=== PATIENT | male | born 1950 | race Caucasian/White ===

== ENCOUNTER → 2016-08-20 | Outpatient (CLI) | payer OTHER ==
[~2016-08-20] VITALS: Ht 175.3 cm; Wt 83.9 kg
[~2016-08-20] MED LIST: ALTACE10 MG PO; ALTACE5 MG PO; AMLODIPINE PO; ANTI HYPERTENSIVE PO; ATROVENT H200 INHALA IH; FERROUS SULFAT325 MG PO; FLOMAX0.4 MG PO; FLOVENT 11120 INHALA IH; FOLIC ACID PO; HYDROCODON-ACE1 EAC7 PO; HYDROCODON-ACE1 EAC9 PO; IRON PO; LIPITOR10 MG PO; LISINOPRIL40 MG PO; LORTAB 10-3251 EACH PO; LYRICA300 MG PO; NORVASC10 MG PO; NORVASC5 MG PO; PRILOSEC20 MG PO; PRILOSEC40 MG PO; PROVENTIL HFA6.7 GM IH; RANITIDINE HCL150 MG PO; THIAMINE HCL100 MG PO; ULTRAM50 MG PO; VENTOLIN HFA18 GM IH; VICODIN 5-3001 EACH PO; VITAMIN B IM; ZANAFLEX4 M1 PO; ZANTAC150 MG PO; ZOCOR10 MG PO; ZYRTEC10 M3 PO
== END | disposition home or self-care (01) ==
LOC: AMB 08-16 12:00
DX: K29.70 Gastritis, unspecified, without bleeding (principal); K20.9 Esophagitis, unspecified; K29.80 Duodenitis without bleeding; D12.0 Benign neoplasm of cecum; D12.3 Benign neoplasm of transverse colon; K57.90 Diverticulosis of intestine, part unspecified, without perforation or abscess without bleeding; K21.9 Gastro-esophageal reflux disease without esophagitis; E53.8 Deficiency of other specified B group vitamins; K59.00 Constipation, unspecified; D50.9 Iron deficiency anemia, unspecified; F17.200 Nicotine dependence, unspecified, uncomplicated; I10 Essential (primary) hypertension; Z82.49 Family history of ischemic heart disease and other diseases of the circulatory system
CPT/HCPCS: 88305; 88342 TC; 93005

== ENCOUNTER 2017-03-29 09:33 | Inpatient (IN) | payer OTHER ==
[~2017-03-29] VITALS: Ht 167.6 cm; Wt 92.5 kg
[~2017-03-29 09:33] MED LIST changes: +PRILOSEC OTC20 MG PO
[2017-03-29 10:21] VITALS: BP 90/56
[2017-03-29 11:05] LABS: ANION GAP 12 MEQ/L (2-14); CHLORIDE 105 MEQ/L (99-109); POTASSIUM 4.7 MEQ/L (3.7-5.4); SAMPLE HEMOLYSIS CHECK 0; SAMPLE ICTERIC CHECK 0; SAMPLE LIPEMIA CHECK 0; SODIUM 139 MEQ/L (136-147); TOTAL BILIRUBIN 0.4 MG/DL (0.0-1.0)
[2017-03-29 11:13] LABS: ALKALINE PHOSPHATASE 76 IU/L (3-129); GFR ESTIMATE (CALCULATED) 14 mL/min/; GLUCOSE 107 mg/dL (70-99); UREA NITROGEN (BUN) 107 mg/dL (9-23)
[2017-03-29 12:11] LABS: POINT-OF-CARE METER ID UU13113747; POINT-OF-CARE USER ID NUTJNM
[2017-03-29 12:38] LABS: EOSINOPHIL (%) 2.2 % (0-5); EOSINOPHIL COUNT 0.1 K/uL (0-0.3); HEMATOCRIT 30.6 % (38.0-50.0); IMMATURE GRANULOCYTE (%) 0.6 % (0.0-0.7); INSTRUMENT ABS NEUTROPHIL CT 3.5 K/uL; LYMPHOCYTE COUNT 1.1 K/uL (1.0-2.8); MCH 31.7 PG (29.0-34.0); MCHC 32.7 G/DL (30.0-36.0); MCV 97.1 FL (86-99); MEAN PLAT.VOLUME 12.1 uM^3 (9.0-12.4); MONOCYTE (%) 11.6 % (3-12); MONOCYTE COUNT 0.6 K/uL (0-0.8); NEUTROPHIL (%) 64.6 % (45-76); NEUTROPHIL COUNT 3.5 K/uL (1.8-6.4); PLATELET COUNT 245 K/uL (156-360); RBC DIS.WIDTH-CV 13.6 % (11.8-14.6); RBC DIS.WIDTH-SD 48.5 % (39-53); RED BLOOD COUNT 3.15 M/uL (4.00-5.50); WHITE BLOOD COUNT 5.4 K/uL (4.1-10.2)
[2017-03-29 12:43] LABS: INTER. NORMALIZED RATIO 1.1; PROTHROMBIN TIME 12.2 SEC (10.2-12.9)
[2017-03-29 12:46] LABS: CHLORIDE 105 mEq/L (99-109); POTASSIUM 4.6 mEq/L (3.7-5.4); PTT 25.2 SEC (25-37); SODIUM 138 mEq/L (136-147)
[2017-03-29 12:49] LABS: GLUCOSE 100 mg/dL (70-99)
[2017-03-29 12:50] LABS: ANION GAP 12 MEQ/L (2-14)
[2017-03-29 12:51] LABS: TOTAL BILIRUBIN 0.3 mg/dL (0.0-1.0)
[2017-03-29 12:52] LABS: ALKALINE PHOSPHATASE 72 IU/L (3-129)
[2017-03-29 12:53] LABS: GFR ESTIMATE (CALCULATED) 14 mL/min/
[2017-03-29 12:54] LABS: DIRECT BILIRUBIN 0.2 mg/dL (0.0-0.3)
[2017-03-29 12:55] LABS: UREA NITROGEN (BUN) 111 mg/dL (9-23)
[2017-03-29 12:56] LABS: LIPASE 79 U/L (1.0-51.0)
[2017-03-29 12:59] LABS: TROP-I INTERPRETATION NEGATIVE; TROPONIN-I < 0.01 ng/mL (0.0-0.30)
[2017-03-29] MEDS ORDERED: MONTELUKAST SOD10 MG PO (14:37)
[2017-03-29] MEDS ORDERED: TRAMADOL HCL50 MG PO (14:37)
[2017-03-29 15:47] LABS: CREATINE KINASE 239 IU/L (1-294)
[2017-03-29 15:50] LABS: ADD MIUA? NO; BILIRUBIN NEGATIVE; BLOOD NEGATIVE; COLOR YELLOW ((YELLOW)); GLUCOSE (STRIP) NEGATIVE; KETONES NEGATIVE; LEUKOCYTES NEGATIVE; NITRITE NEGATIVE; PROTEIN (STRIP) NEGATIVE; SPECIFIC GRAVITY 1.019 (1.000-1.030); UCUL ADDED? NO; UROBILINOGEN 0.2 MG/DL (0.2-1.0)
[2017-03-29 17:07] LABS: UR CREATININE CONCENTRATION 197.2 MG/DL; UR CREATININE CONCENTRATION 199.5 MG/DL
[2017-03-29 19:15] VITALS: BP 94/56
[2017-03-29 23:00] VITALS: BP 87/54
[2017-03-30 03:00] VITALS: BP 128/72
[2017-03-30 07:45] VITALS: BP 116/70
[2017-03-30 09:41] LABS: EOSINOPHIL COUNT 0.2 K/uL (0-0.3); HEMATOCRIT 29.8 % (38.0-50.0); IMMATURE GRANULOCYTE (%) 0.6 % (0.0-0.7); INSTRUMENT ABS NEUTROPHIL CT 2.8 K/uL; LYMPHOCYTE COUNT 1.2 K/uL (1.0-2.8); MCH 33.1 PG (29.0-34.0); MCHC 32.9 G/DL (30.0-36.0); MCV 100.7 FL (86-99); MEAN PLAT.VOLUME 12.2 uM^3 (9.0-12.4); MONOCYTE (%) 10.2 % (3-12); MONOCYTE COUNT 0.5 K/uL (0-0.8); NEUTROPHIL (%) 59.3 % (45-76); NEUTROPHIL COUNT 2.8 K/uL (1.8-6.4); PLATELET COUNT 213 K/uL (156-360); RBC DIS.WIDTH-CV 13.7 % (11.8-14.6); RBC DIS.WIDTH-SD 50.7 % (39-53); RED BLOOD COUNT 2.96 M/uL (4.00-5.50); WHITE BLOOD COUNT 4.7 K/uL (4.1-10.2)
[2017-03-30 09:50] LABS: ANION GAP 8 MEQ/L (2-14); CHLORIDE 115 MEQ/L (99-109); GFR ESTIMATE (CALCULATED) 34 mL/min/; GLUCOSE 98 mg/dL (70-99); POTASSIUM 4.6 MEQ/L (3.7-5.4); SAMPLE HEMOLYSIS CHECK 0; SAMPLE ICTERIC CHECK 0; SAMPLE LIPEMIA CHECK 0; SODIUM 143 MEQ/L (136-147); UREA NITROGEN (BUN) 72 mg/dL (9-23)
[2017-03-30 12:00] VITALS: BP 114/83
[2017-03-30 16:00] VITALS: BP 140/76
[2017-03-30 19:00] VITALS: BP 144/80
[2017-03-30 22:30] VITALS: BP 146/76
[2017-03-31 04:30] VITALS: BP 109/71
[2017-03-31 05:58] LABS: EOSINOPHIL COUNT 0.1 K/uL (0-0.3); HEMATOCRIT 28.9 % (38.0-50.0); IMMATURE GRANULOCYTE (%) 0.5 % (0.0-0.7); INSTRUMENT ABS NEUTROPHIL CT 2.5 K/uL; LYMPHOCYTE COUNT 1.3 K/uL (1.0-2.8); MCH 31.4 PG (29.0-34.0); MCHC 32.2 G/DL (30.0-36.0); MCV 97.6 FL (86-99); MEAN PLAT.VOLUME 11.8 uM^3 (9.0-12.4); MONOCYTE COUNT 0.4 K/uL (0-0.8); NEUTROPHIL (%) 57.8 % (45-76); NEUTROPHIL COUNT 2.5 K/uL (1.8-6.4); PLATELET COUNT 214 K/uL (156-360); RBC DIS.WIDTH-CV 13.4 % (11.8-14.6); RBC DIS.WIDTH-SD 48.6 % (39-53); RED BLOOD COUNT 2.96 M/uL (4.00-5.50); WHITE BLOOD COUNT 4.4 K/uL (4.1-10.2)
[2017-03-31 07:49] LABS: ALKALINE PHOSPHATASE 57 IU/L (3-129); ANION GAP 7 MEQ/L (2-14); CHLORIDE 117 MEQ/L (99-109); GFR ESTIMATE (CALCULATED) > 59 mL/min/; GLUCOSE 89 mg/dL (70-99); POTASSIUM 4.2 MEQ/L (3.7-5.4); SAMPLE HEMOLYSIS CHECK 0; SAMPLE ICTERIC CHECK 0; SAMPLE LIPEMIA CHECK 0; SODIUM 144 MEQ/L (136-147); TOTAL BILIRUBIN 0.2 MG/DL (0.0-1.0); UREA NITROGEN (BUN) 42 mg/dL (9-23)
[2017-03-31 08:30] VITALS: BP 130/90
[2017-03-31 11:11] VITALS: BP 139/85
[2017-03-31 16:51] VITALS: BP 120/76
[2017-03-31 22:09] VITALS: BP 124/78
[2017-04-01 02:41] VITALS: BP 118/72
[2017-04-01 02:43] VITALS: BP 116/58
[2017-04-01 05:30] LABS: EOSINOPHIL (%) 2.7 % (0-5); EOSINOPHIL COUNT 0.1 K/uL (0-0.3); HEMATOCRIT 29.3 % (38.0-50.0); IMMATURE GRANULOCYTE (%) 0.4 % (0.0-0.7); INSTRUMENT ABS NEUTROPHIL CT 2.8 K/uL; LYMPHOCYTE COUNT 1.4 K/uL (1.0-2.8); MCH 31.6 PG (29.0-34.0); MCHC 32.1 G/DL (30.0-36.0); MCV 98.7 FL (86-99); MEAN PLAT.VOLUME 11.8 uM^3 (9.0-12.4); MONOCYTE (%) 9.5 % (3-12); MONOCYTE COUNT 0.5 K/uL (0-0.8); NEUTROPHIL (%) 57.8 % (45-76); NEUTROPHIL COUNT 2.8 K/uL (1.8-6.4); PLATELET COUNT 207 K/uL (156-360); RBC DIS.WIDTH-CV 13.4 % (11.8-14.6); RBC DIS.WIDTH-SD 48.8 % (39-53); RED BLOOD COUNT 2.97 M/uL (4.00-5.50); WHITE BLOOD COUNT 4.8 K/uL (4.1-10.2)
[2017-04-01 05:58] LABS: ANION GAP 11 MEQ/L (2-14); CHLORIDE 116 MEQ/L (99-109); GFR ESTIMATE (CALCULATED) > 59 mL/min/; GLUCOSE 93 mg/dL (70-99); POTASSIUM 4.5 MEQ/L (3.7-5.4); SAMPLE HEMOLYSIS CHECK 0; SAMPLE ICTERIC CHECK 0; SAMPLE LIPEMIA CHECK 0; SODIUM 147 MEQ/L (136-147)
[2017-04-01 05:59] LABS: UREA NITROGEN (BUN) 20 mg/dL (9-23)
[2017-04-01 08:30] VITALS: BP 146/96
[2017-04-01 12:30] VITALS: BP 150/97
[2017-04-01] MEDS ORDERED: NICOTINE PATCH1 EAC2 TD (14:36)
[2017-04-01] MEDS ORDERED: ROCEPHIN 2 GM VI2 GM IM (14:37)
[2017-04-01] MEDS ORDERED: LYRICA75 MG PO (14:38)
[2017-04-01] MEDS ORDERED: ROCEPHIN 2 GM VI2 GM IV (15:22)
== END 2017-04-01 17:42 | disposition home health service (06) | DRG 871 ==
LOC: SDC 09:33 → EME 09:33 → EDSTATUS 11:51 → SDC 14:42 → EDOF 14:50 → 4EAST 14:50 → ENRESERV 14:51 → CANRESERV 14:51 → EDOF 15:09 → ENRESERV 15:12 → 4EAST 19:14
PROVIDERS: Emergency Medicine; Internal Medicine; Orthopaedic Surgery
DX: A41.59 Other Gram-negative sepsis (principal); R65.20 Severe sepsis without septic shock; N17.9 Acute kidney failure, unspecified; L03.115 Cellulitis of right lower limb; K57.92 Diverticulitis of intestine, part unspecified, without perforation or abscess without bleeding; I95.2 Hypotension due to drugs; T46.4X5A Adverse effect of angiotensin-converting-enzyme inhibitors, initial encounter; G92 Toxic encephalopathy; T50.905A Adverse effect of unspecified drugs, medicaments and biological substances, initial encounter; E86.0 Dehydration; E86.1 Hypovolemia; E87.2 Acidosis; S82.851A Displaced trimalleolar fracture of right lower leg, initial encounter for closed fracture; W18.30XA Fall on same level, unspecified, initial encounter; Y92.009 Unspecified place in unspecified non-institutional (private) residence as the place of occurrence of the external cause; I12.9 Hypertensive chronic kidney disease with stage 1 through stage 4 chronic kidney disease, or unspecified chronic kidney disease; N18.3 Chronic kidney disease, stage 3 (moderate); J43.9 Emphysema, unspecified; D64.9 Anemia, unspecified; I07.1 Rheumatic tricuspid insufficiency; R60.0 Localized edema; T46.1X5A Adverse effect of calcium-channel blockers, initial encounter; T42.6X5A Adverse effect of other antiepileptic and sedative-hypnotic drugs, initial encounter; G43.909 Migraine, unspecified, not intractable, without status migrainosus; K21.9 Gastro-esophageal reflux disease without esophagitis; M10.9 Gout, unspecified; M19.90 Unspecified osteoarthritis, unspecified site; R29.6 Repeated falls; Z82.49 Family history of ischemic heart disease and other diseases of the circulatory system; F17.210 Nicotine dependence, cigarettes, uncomplicated
CPT/HCPCS: 70450; 71010; 74176; 76770; 80048; 80048 91; 80053; 80076; 81003; 82533 91; 82550 91; 82570; 82948; 83605; 83690; 83880; 84156; 84300; 84484; 85025; 85610; 85730; 87040; 87070; 87075; 87077; 87086; 87186; 87205; 87801; 93005; 93306; 99202; 99281; 99285; J0690; J0696; J1100; J1644; J2405; J7030; J7050; S0020; S0030

== ENCOUNTER 2017-05-10 09:54 | Day surgery (SDC) | payer OTHER ==
[~2017-05-10] VITALS: Ht 175.3 cm; Wt 91.7 kg
[~2017-05-10 09:54] MED LIST changes: +ASPIR 8181 M1 PO; +CYANOCOBALAM1000 MCG PO; +FOLIC ACID1 MG PO; +LYRICA75 MG PO; +MONTELUKAST SOD10 MG PO; +NICOTINE PATCH1 EAC2 TD; +OMEPRAZOLE20 MG PO; +PROVENTIL,2.5 MG/3 M IH; +ROCEPHIN 2 GM VI2 GM IM; +ROCEPHIN 2 GM VI2 GM IV; +TRAMADOL HCL50 MG PO; +TUSSIONEX PENN473 ML PO; +VITAMIN B-1100 MG PO; +VITAMIN C500 M6 PO
[2017-05-10 10:20] VITALS: BP 172/99
[2017-05-10 22:22] VITALS: BP 181/114
== END 2017-05-10 22:48 | disposition home or self-care (01) ==
LOC: SDC 09:54 → 2EASTP 17:34 → ENRESERV 21:01 → 2EASTP 22:48
DX: S82.851A Displaced trimalleolar fracture of right lower leg, initial encounter for closed fracture (principal); I10 Essential (primary) hypertension; K21.9 Gastro-esophageal reflux disease without esophagitis; J44.9 Chronic obstructive pulmonary disease, unspecified; E78.00 Pure hypercholesterolemia, unspecified; Z79.01 Long term (current) use of anticoagulants; F17.210 Nicotine dependence, cigarettes, uncomplicated
CPT/HCPCS: 73610; 76000; C1713; G0378; J0131; J0360; J0690; J1170; J2250; J2405; J2765; J3010; S0020

== ENCOUNTER → 2017-06-24 | Outpatient (CLI) | payer OTHER | END | disposition home or self-care (01) | LOC: MRI 17:02 | DX: R59.0 Localized enlarged lymph nodes (principal); S82.851D Displaced trimalleolar fracture of right lower leg, subsequent encounter for closed fracture with routine healing; L03.115 Cellulitis of right lower limb; M79.89 Other specified soft tissue disorders | CPT/HCPCS: 93971 ==

== ENCOUNTER 2017-06-28 09:59 | Day surgery (SDC) | payer OTHER ==
[~2017-06-28] VITALS: Ht 175.3 cm; Wt 83.9 kg
[2017-06-28] MEDS ORDERED: ASPIRIN325 MG PO (10:36)
[2017-06-28 10:39] VITALS: BP 142/97
[2017-06-28 14:58] VITALS: BP 142/85
[2017-06-28 15:53] VITALS: BP 132/81
== END 2017-06-28 15:52 | disposition home or self-care (01) ==
LOC: SDC 09:59
PROC: 0Y9K0ZZ Drainage of Right Ankle Region, Open Approach (ICD-10-PCS; principal; 2017-06-28)
DX: T81.4XXA Infection following a procedure, initial encounter (principal); I10 Essential (primary) hypertension; J44.9 Chronic obstructive pulmonary disease, unspecified; Z79.01 Long term (current) use of anticoagulants; K21.9 Gastro-esophageal reflux disease without esophagitis; E78.00 Pure hypercholesterolemia, unspecified; Z79.82 Long term (current) use of aspirin
CPT/HCPCS: 87070; 87075; 87077; 87186; 87205; 94640; J0330; J0696; J1170; J2405; J3010